=== PATIENT | male | born 1945 | race Caucasian/White ===

== ENCOUNTER → 2017-08-02 | Emergency (ER) | payer OTHER ==
[~2017-08-02] VITALS: Ht 160 cm; Wt 70.3 kg
[~2017-08-02] MED LIST: AMANTADINE100 MG; AMOX1TAB12 PO; ASA81 MG; CARBIDOPA; COMTAN200 MG; DICLOFENAC SODI50 MG PO; LEVODOPA; MIRAPEX1.5 MG; ZESTORETIC 10/11 TAB
== END | disposition home or self-care (01) ==
LOC: ER 08:20
DX: S22.32XA Fracture of one rib, left side, initial encounter for closed fracture (principal); W01.198A Fall on same level from slipping, tripping and stumbling with subsequent striking against other object, initial encounter; Y93.01 Activity, walking, marching and hiking; Y92.018 Other place in single-family (private) house as the place of occurrence of the external cause; Y99.8 Other external cause status

== ENCOUNTER 2018-11-17 05:20 | Emergency (ER) | payer OTHER ==
[~2018-11-17] VITALS: Ht 157.5 cm; Wt 72.6 kg
== END 2018-11-17 09:50 | disposition home or self-care (01) ==
LOC: ER 05:20
DX: R41.82 Altered mental status, unspecified (principal)

== ENCOUNTER 2021-08-12 17:52 | Emergency (ER) | payer OTHER ==
[~2021-08-12] VITALS: Ht 175.3 cm; Wt 77.1 kg
[2021-08-12] MEDS ORDERED: NUPLAZID34 MG PO (18:14)
== END 2021-08-13 | disposition home or self-care (01) ==
LOC: ER 17:52
DX: U07.1 COVID-19 (principal); J98.9 Respiratory disorder, unspecified

== ENCOUNTER 2023-04-05 10:46 | Emergency (ER) | payer OTHER ==
[~2023-04-05] VITALS: Ht 162.6 cm; Wt 68.0 kg
[~2023-04-05 10:46] MED LIST changes: +NUPLAZID34 MG PO
[2023-04-05] MEDS ORDERED: RYTARY ER 36.21 EACH PO (11:08)
[2023-04-05] MEDS ORDERED: RYTARY ER 23.71 EACH PO (11:08)
[2023-04-05] MEDS ORDERED: NUPLAZID10 MG PO (11:08)
[2023-04-05 11:57] LABS: HEMATOCRIT 35.2 % (39.0-48.0); HEMOGLOBIN 11.2 g/dL (13-16.00); MEAN CELL VOLUME 69.1 fL (80.0-100.00); MEAN CORPUSCULAR HGB CONC 31.8 g/dl (32.0-36.0); PLATELET COUNT 228 K/uL (150-450); RED CELL DISTRIBUTION WIDTH 15.6 % (11.5-14.5)
[2023-04-05] MEDS ORDERED: TUSNEL LIQUID178 ML PO (12:43)
== END 2023-04-05 13:15 | disposition home or self-care (01) ==
LOC: ER 10:46
PROVIDERS: General Practice
DX: R05.8 Other specified cough (principal); I10 Essential (primary) hypertension; G20.A1 Parkinson's disease without dyskinesia, without mention of fluctuations

== ENCOUNTER 2024-02-29 23:38 | Emergency (ER) | payer OTHER ==
[~2024-02-29] VITALS: Ht 167.6 cm; Wt 68.0 kg
[~2024-02-29 23:38] MED LIST changes: +NUPLAZID10 MG PO; +RYTARY ER 23.71 EACH PO; +RYTARY ER 36.21 EACH PO; +TUSNEL LIQUID178 ML PO
[2024-03-01] MEDS ORDERED: PRAMIPEXOLE E2.25 MG (00:03)
[2024-03-01] MEDS ORDERED: SINGULAIR10 MG PO (00:04)
[2024-03-01] MEDS ORDERED: RYTARY ER 48.71 EACH PO (00:04)
[2024-03-01] MEDS ORDERED: [UNRECOGNIZED DRUG - OTHER] (00:05)
[2024-03-01] MEDS ORDERED: TRIPLIX (00:05)
[2024-03-01] MEDS ORDERED: VISTARIL25 MG PO (00:06)
[2024-03-01] MEDS ORDERED: RIVASTIGMINE1.5 MG PO (00:06)
[2024-03-01] MEDS ORDERED: 0.9 % SODIUM CHLORIDE 1,000 ML IV ONE (01:15)
[2024-03-01 02:17] LABS: HEMATOCRIT 29.7 % (39.0-48.0); MEAN CORPUSCULAR HEMOGLOBIN 22.2 pg (27.00-32.0); MEAN CORPUSCULAR HGB CONC 33.3 g/dl (32.0-36.0); PLATELET COUNT 230 K/uL (150-450); RED BLOOD COUNT 4.45 M/uL (4.00-6.00)
[2024-03-01 02:19] LABS: HEMOGLOBIN 9.9 g/dL (13-16.00); MEAN CELL VOLUME 66.7 fL (80.0-100.00)
[2024-03-01 02:37] LABS: ALBUMIN 3.1 gm/dL (3.4-5.0); BILIRUBIN TOTAL 0.91 mg/dL (0.3-1.2); CREATININE SERUM 0.93 mg/dL (0.70-1.30); GFR 78.58; GLOBULINA 3.2 G/DL (2.4-3.5); POTASSIUM 4.44 mEq/L (3.5-5.1); TOTAL PROTEIN 6.3 gm/dL (6.4-8.2)
[2024-03-01 03:04] LABS: URINE APPEARANCE Clear; URINE BILIRRUBIN Small (NEGATIVE); URINE BLOOD Negative; URINE COLOR Dark Yellow; URINE GLUCOSE Negative (NEGATIVE); URINE KETONE Trace (NEGATIVE); URINE LEUKOCYTE Trace; URINE NITRATE Negative; URINE PROTEIN Trace (NEGATIVE)
[2024-03-01 03:09] LABS: URINE BACTERIA 6.2 uL (0.0-1933); URINE EPITHELIAL CELLS 3.4 uL (0.0-38.8); URINE RBC 4.4 uL (0.0-20.8); URINE WBC 5.8 uL (0.0-23.2)
[2024-03-01] MEDS ORDERED: DIPHENHYDRAMINE HCL 50 MG/ML VIAL 1ML IV STA (03:24)
[2024-03-01] MEDS ORDERED: CIPRO250 MG PO (06:55)
[2024-03-01] MEDS ORDERED: URETRON D-S TAB1 TAB PO (06:55)
[2024-03-01] MEDS ORDERED: INTEGRA CAPSUL1 EACH PO (06:58)
[2024-03-01 07:21] VITALS: BP 166/80; O2SAT 97
== END 2024-03-01 07:22 ==
LOC: ER 23:38
PROVIDERS: General Practice
DX: S39.82XA Other specified injuries of lower back, initial encounter (principal); W19.XXXA Unspecified fall, initial encounter; Y93.89 Activity, other specified; Y92.098 Other place in other non-institutional residence as the place of occurrence of the external cause; Y99.8 Other external cause status; R30.0 Dysuria; I10 Essential (primary) hypertension
CPT/HCPCS: 36415; 51702; 72100; 72170; 96365; 96366; 99283; J1200; J7030

== ENCOUNTER 2024-03-17 10:41 | Inpatient (IN) | payer OTHER ==
[~2024-03-17] VITALS: Ht 162.6 cm; Wt 68.0 kg
[~2024-03-17 10:41] MED LIST changes: +CIPRO250 MG PO; +INTEGRA CAPSUL1 EACH PO; +PRAMIPEXOLE E2.25 MG; +RIVASTIGMINE1.5 MG PO; +RYTARY ER 48.71 EACH PO; +SINGULAIR10 MG PO; +TRIPLIX; +URETRON D-S TAB1 TAB PO; +VISTARIL25 MG PO; +[UNRECOGNIZED DRUG - OTHER]
--- NOTE | 2024-03-17 11:49 | NUR ---
PACIENTE ALERTA Y ORIENTADO X3 QUIEN DESDE MIERCOLES PRESENTO LACERACION EN PIERNA IZQUIERDA EN DONDE ORNELAS PRESENTADO INFLAMACION Y ENROJECIMIENTO. SE OBSERVA AMBAS EXTREMIDADES INFERIORES INFLAMADAS.
[2024-03-17] MEDS ORDERED: CIPROFLOXACIN IN 5 % DEXTROSE 400 MG/200 ML PIGGYBAG IV STA (12:27)
--- NOTE | 2024-03-17 13:48 | NUR ---
PACIENTE ALERTA Y ORIENTADO X3. RN DAVENPORT EDUCA A PACIENTE Y FAMILIAR SOBRE PROCESO DE KELTON DE MUESTRAS, CANALIZACION Y ADMINISTRACION DE MEDICAMENTOS, REFIEREN ENTENDER. SE EJECUTAN ORDENES BAJO MEDIDAS ASEPTICAS.
[2024-03-17 14:06] LABS: HEMOGLOBIN 9.4 g/dL (13-16.00); MEAN CORPUSCULAR HEMOGLOBIN 20.9 pg (27.00-32.0); MEAN CORPUSCULAR HGB CONC 31.5 g/dl (32.0-36.0); PLATELET COUNT 444 K/uL (150-450); RED BLOOD COUNT 4.51 M/uL (4.00-6.00)
[2024-03-17 14:12] LABS: MEAN CELL VOLUME 66.6 fL (80.0-100.00)
[2024-03-17 16:52] LABS: URINE APPEARANCE Turbid; URINE BILIRRUBIN Negative (NEGATIVE); URINE BLOOD Small; URINE COLOR Yellow; URINE GLUCOSE Negative (NEGATIVE); URINE KETONE Negative (NEGATIVE); URINE LEUKOCYTE Large; URINE NITRATE Negative; URINE PROTEIN Trace (NEGATIVE); URINE UROBILINOGEN 0.2 E.U./dl
[2024-03-17 16:56] LABS: URINE BACTERIA 114.6 uL (0.0-1933); URINE CAST 1.52 uL (0.0-1.40); URINE EPITHELIAL CELLS 4.6 uL (0.0-38.8); URINE RBC 5.4 uL (0.0-20.8); URINE WBC 3547.1 uL (0.0-23.2)
[2024-03-17 17:00] LABS: CALCIUM 8.9 mg/dL (8.5-10.1); CREATININE SERUM 1.65 mg/dL (0.70-1.30); GFR 40.55; POTASSIUM 3.75 mEq/L (3.5-5.1)
[2024-03-17] MEDS ORDERED: CEFTRIAXONE SODIUM 2,000 MG VIAL IV ONE (18:15)
[2024-03-17] MEDS ORDERED: CEFTRIAXONE SODIUM 2,000 MG in 0.9 % SODIUM CHLORIDE 100 ML IV SCH (19:56)
[2024-03-17] MEDS ORDERED: 0.9 % SODIUM CHLORIDE 1,000 ML IV SCH (20:15)
[2024-03-17] MEDS ORDERED: QUETIAPINE FUMARATE 25 MG TABLET PO SCH (20:26)
[2024-03-17] MEDS ORDERED: CARBIDOPA/LEVODOPA 25/100 UDTAB PO SCH (20:26)
[2024-03-17] MEDS ORDERED: FUROsemide 20 MG/2 ML VIAL IV ONE (20:30)
[2024-03-17] MEDS ORDERED: ENALAPRILAT DIHYDRATE 1.25 MG/ML VIAL IV PRN (20:30)
[2024-03-17 23:53] LABS: INR 1.23; PARTIAL THROMBOPLASTIN TIME 36.3 SECONDS (22.0-34.0); PROTHROMBIN TIME 13.2 SECONDS (9.0-11.5)
[2024-03-17 23:58] LABS: ALBUMIN 2.2 gm/dL (3.4-5.0); CALCIUM 8.5 mg/dL (8.5-10.1); CREATININE SERUM 1.6 mg/dL (0.70-1.30); GFR 42.01; PHOSPHOROUS 3.3 mg/dL (2.5-4.9); POTASSIUM 4.27 mEq/L (3.5-5.1)
[2024-03-18 05:00] VITALS: BP 151/66; O2SAT 96
[2024-03-18 07:37] LABS: ALBUMIN 1.9 gm/dL (3.4-5.0); BILIRUBIN TOTAL 0.62 mg/dL (0.3-1.2); CALCIUM 8.5 mg/dL (8.5-10.1); CREATININE SERUM 1.45 mg/dL (0.70-1.30); GFR 47.07; GLOBULINA 3.6 G/DL (2.4-3.5); POTASSIUM 4.14 mEq/L (3.5-5.1); TOTAL PROTEIN 5.5 gm/dL (6.4-8.2)
[2024-03-18 08:37] VITALS: BP 177/90; O2SAT 97
[2024-03-18 19:08] VITALS: BP 160/80
[2024-03-19 02:37] VITALS: BP 124/92; O2SAT 99
[2024-03-19 08:54] VITALS: BP 177/83; O2SAT 99
[2024-03-19 17:25] VITALS: BP 165/74
[2024-03-20 02:25] VITALS: BP 186/80; O2SAT 98
[2024-03-20 08:13] VITALS: BP 173/89
[2024-03-20 16:28] VITALS: BP 177/84; O2SAT 97
[2024-03-20] MEDS ORDERED: hydrALAZINE HCL 25 MG TABLET PO SCH (17:00)
[2024-03-20 20:00] VITALS: BP 167/76; O2SAT 97
[2024-03-21 02:17] VITALS: BP 156/64; O2SAT 96
[2024-03-21 06:44] LABS: ALBUMIN 1.8 gm/dL (3.4-5.0); ALKALINE PHOSPHATASE 89 U/L (50-136); ANION GAP 10 (10.0-20.0); AST/SGOT 44 U/L (15-37); BILIRUBIN TOTAL 0.45 mg/dL (0.3-1.2); BLOOD UREA NITROGEN 33 mg/dL (7-18); BUN CREA RATIO 31 (7.0-25.0); CALCIUM 8.5 mg/dL (8.5-10.1); CARBON DIOXIDE 27 mEq/L (21-32); CHLORIDE 114 mmol/L (98-107); CREATININE SERUM 1.07 mg/dL (0.70-1.30); GFR 66.84; GLOBULINA 3.5 G/DL (2.4-3.5); GLUCOSE FASTING 88 mg/dL (65-100); OSMOLALITY SERUM 299 MOSM/KG (275-295); POTASSIUM 3.88 mEq/L (3.5-5.1); SODIUM 147 mmol/L (136-145); TOTAL PROTEIN 5.3 gm/dL (6.4-8.2)
[2024-03-21 06:45] LABS: ALT/SGPT < 6 U/L (12-78)
[2024-03-21 09:21] VITALS: BP 176/82; O2SAT 100
== END 2024-03-21 12:20 | disposition home or self-care (01) | DRG 603 ==
LOC: ER 10:43 → MEDI 21:24
PROVIDERS: General Practice; Student in an Organized Health Care Education/Training Program; ADMIT Internal Medicine; ATTEND Internal Medicine
PROC: B54DZZZ Ultrasonography of Bilateral Lower Extremity Veins (ICD-10-PCS; 2024-03-17)
PROC: B44HZZZ Ultrasonography of Bilateral Lower Extremity Arteries (ICD-10-PCS; principal; 2024-03-18)
DX: L03.116 Cellulitis of left lower limb (principal); N17.9 Acute kidney failure, unspecified; N39.0 Urinary tract infection, site not specified; G20.A1 Parkinson's disease without dyskinesia, without mention of fluctuations; I10 Essential (primary) hypertension; I70.203 Unspecified atherosclerosis of native arteries of extremities, bilateral legs; I73.9 Peripheral vascular disease, unspecified

== ENCOUNTER 2024-03-26 11:26 | Inpatient (IN) | payer OTHER ==
[~2024-03-26] VITALS: Ht 162.6 cm; Wt 68.0 kg
--- NOTE | 2024-03-26 11:40 | NUR ---
SE RECIBE MASCULINO ALERTA Y ORIENTADO EN PERSONA Y LUGAR EN AMBULANCIA EN COMPANIA DE FAMILIAR. FAMILIAR REFIERE QUE EN EL HOGAR PACIENTE PRESENTO DIFICULTAD RESPIRATORIA Y NO ESTABA RESPONDIENDO. AL MOMENTO DE TRIAGE PACIENTE SATURANDO 98% ROOM AIR. SE MIDEN S/V, SE REALIZA EKG Y SE UBICA A PACIENTE CONECTADO A MONITOR CARDIACO Y OXIMETRIA DE PULSO.
--- NOTE | 2024-03-26 11:51 | NUR ---
SE ORIENTA A FAMILIAR SOBRE ORDENES MEDICAS Y VERBALIZA ENTENDER Y ACEPTAR. SE REALIZA VENOPUNCION PARA OBTENER ACCESO VENOSO Y COLECTAR MUESTRAS DE CURLY POR AUBRIE COLE. ADMINISTRA MEDICAMENTOS SARAH ORDEN MEDICA. SE ETIQUETAN LAS MUESRTRAS Y SE ENVIAN A LABORATORIO.
--- NOTE | 2024-03-26 11:56 | NUR ---
SE CONECTA A PACIENTE A MONITOR CARDIACO EN AREA DE SECCION K
[2024-03-26 12:39] LABS: ALBUMIN 2.2 gm/dL (3.4-5.0); BILIRUBIN TOTAL 0.77 mg/dL (0.3-1.2); CALCIUM 8.5 mg/dL (8.5-10.1); CREATININE SERUM 1.94 mg/dL (0.70-1.30); GFR 33.64; GLOBULINA 4.2 G/DL (2.4-3.5); POTASSIUM 4.1 mEq/L (3.5-5.1); TOTAL PROTEIN 6.4 gm/dL (6.4-8.2)
[2024-03-26 12:50] LABS: HEMATOCRIT 25.6 % (39.0-48.0); HEMOGLOBIN 8.5 g/dL (13-16.00); MEAN CORPUSCULAR HEMOGLOBIN 21.6 pg (27.00-32.0); MEAN CORPUSCULAR HGB CONC 33.2 g/dl (32.0-36.0); PLATELET COUNT 279 K/uL (150-450); RED BLOOD COUNT 3.93 M/uL (4.00-6.00); RED CELL DISTRIBUTION WIDTH 17.2 % (11.5-14.5)
[2024-03-26] MEDS ORDERED: NITROGLYCERIN IN 5 % DEXTROSE 50 MG/250 ML KIT IV ONE (13:00)
[2024-03-26] MEDS ORDERED: FUROsemide 40 MG/4 ML VIAL IV ONE (13:00)
[2024-03-26] MEDS ORDERED: CEFTRIAXONE SODIUM 1,000 MG VIAL IV ONE (13:30)
[2024-03-26 13:54] LABS: ABG PH 7.467 (7.35-7.45); ABG PO2 64.3 mmHg (80-100); ABG pCO2 34.5 mmHg (35-45); BASE EXCESS 1.2 mmol/l; BICARBONATE 24.4 mmol/l (23-25); SaO2 93.7 %; Tco2 25.4 mmol/l; allen test SATISFACTORY; o2 21 %; puncture site RADIAL LEFT
[2024-03-26 14:31] LABS: URINE BACTERIA 75.8 uL (0.0-1933); URINE CAST 6.62 uL (0.0-1.40); URINE RBC 117.2 uL (0.0-20.8); URINE WBC 97.5 uL (0.0-23.2)
[2024-03-26 14:38] LABS: URINE APPEARANCE Cloudy; URINE BILIRRUBIN Negative (NEGATIVE); URINE BLOOD Large; URINE COLOR Dark Yellow; URINE GLUCOSE Negative (NEGATIVE); URINE KETONE Trace (NEGATIVE); URINE LEUKOCYTE Small; URINE NITRATE Negative
[2024-03-26 15:47] LABS: URINE PROTEIN 100 (NEGATIVE)
[2024-03-26 15:48] LABS: URINE MUCUS MODERATE
[2024-03-26] MEDS ORDERED: FUROsemide 20 MG/2 ML VIAL IV SCH (18:57)
[2024-03-26] MEDS ORDERED: NITROGLYCERIN IN 5 % DEXTROSE 250 ML IV SCH (19:00)
[2024-03-26] MEDS ORDERED: 0.9 % SODIUM CHLORIDE 1,000 ML IV SCH (19:00)
[2024-03-26] MEDS ORDERED: CARBIDOPA/LEVODOPA 25/100 UDTAB PO SCH (19:27)
[2024-03-26 20:18] VITALS: BP 125/61
[2024-03-26 20:24] VITALS: BP 125/61; O2SAT 96
[2024-03-26] MEDS ORDERED: ENOXAPARIN SODIUM 30 MG/0.3 ML SYRINGE SUBCUTANEO SCH (21:00)
[2024-03-26] MEDS ORDERED: CEFTRIAXONE SODIUM 1,000 MG in 0.9 % SODIUM CHLORIDE 100 ML IV SCH (21:00)
[2024-03-26 21:34] LABS: ALBUMIN 1.9 gm/dL (3.4-5.0); CALCIUM 8.9 mg/dL (8.5-10.1); CREATININE SERUM 2.04 mg/dL (0.70-1.30); GFR 31.74; PHOSPHOROUS 4.1 mg/dL (2.5-4.9)
[2024-03-26 21:35] LABS: CHOL HDL RATIO 1.9 (0-5.0)
[2024-03-26 21:38] LABS: INR 1.32; PROTHROMBIN TIME 14.1 SECONDS (9.0-11.5)
[2024-03-26 21:39] LABS: PARTIAL THROMBOPLASTIN TIME 39.1 SECONDS (22.0-34.0)
[2024-03-26 22:38] VITALS: BP 151/85; O2SAT 100
[2024-03-26 23:41] VITALS: BP 121/59; O2SAT 100
[2024-03-27] MEDS ORDERED: NITROGLYCERIN IN 5 % DEXTROSE 250 ML IV SCH (07:15)
[2024-03-27 09:28] VITALS: BP 147/80; O2SAT 98
[2024-03-27] MEDS ORDERED: ENOXAPARIN SODIUM 80 MG/0.8 ML SYRINGE SUBCUTANEO SCH (17:00)
[2024-03-27] MEDS ORDERED: ASPIRIN 81 MG TAB.CHEW PO SCH (18:07)
[2024-03-27] MEDS ORDERED: CLOPIDOGREL BISULFATE 75 MG TABLET PO SCH (18:07)
[2024-03-27] MEDS ORDERED: METOPROLOL SUCCINATE 25 MG TAB.SR.24H PO SCH (18:08)
[2024-03-27] MEDS ORDERED: ATORVASTATIN CALCIUM 40 MG TABLET PO SCH (18:08)
[2024-03-27 18:33] VITALS: BP 169/74
[2024-03-27] MEDS ORDERED: QUETIAPINE FUMARATE 25 MG TABLET PO SCH (21:00)
[2024-03-28 02:13] VITALS: BP 146/66; O2SAT 96
[2024-03-28 07:55] VITALS: BP 160/80; O2SAT 98
[2024-03-28] MEDS ORDERED: CARBIDOPA/LEVODOPA 25/100 UDTAB PO SCH (09:00)
[2024-03-28 18:01] VITALS: BP 178/85
[2024-03-29 02:56] VITALS: BP 180/85; O2SAT 96
[2024-03-29 08:46] VITALS: BP 180/85; O2SAT 94
[2024-03-29 12:06] LABS: MEAN CORPUSCULAR HGB CONC 33.2 g/dl (32.0-36.0); PLATELET COUNT 212 K/uL (150-450); RED BLOOD COUNT 3.26 M/uL (4.00-6.00); RED CELL DISTRIBUTION WIDTH 17.1 % (11.5-14.5)
[2024-03-29 12:24] LABS: CALCIUM 8.2 mg/dL (8.5-10.1); CREATININE SERUM 1.83 mg/dL (0.70-1.30); GFR 35.98; POTASSIUM 3.66 mEq/L (3.5-5.1)
[2024-03-29 13:03] LABS: HEMATOCRIT 21.1 % (39.0-48.0); MEAN CELL VOLUME 64.9 fL (80.0-100.00); MEAN CORPUSCULAR HEMOGLOBIN 21.4 pg (27.00-32.0)
[2024-03-29 20:46] VITALS: BP 172/80
[2024-03-29] MEDS ORDERED: NIFEDIPINE 30 MG TAB.SA.OSM PO SCH (21:04)
[2024-03-30 03:18] VITALS: BP 149/73; O2SAT 95
[2024-03-30] MEDS ORDERED: hydrALAZINE HCL 25 MG TABLET PO SCH (09:00)
[2024-03-30 11:08] VITALS: BP 182/70; O2SAT 95
[2024-03-30 18:23] VITALS: BP 146/70; O2SAT 95
[2024-03-31 03:01] VITALS: BP 152/68; O2SAT 93
[2024-03-31 06:26] LABS: HEMATOCRIT 30.4 % (39.0-48.0); PLATELET COUNT 282 K/uL (150-450); RED BLOOD COUNT 4.45 M/uL (4.00-6.00); RED CELL DISTRIBUTION WIDTH 19.9 % (11.5-14.5)
[2024-03-31 06:37] LABS: MEAN CELL VOLUME 68.4 fL (80.0-100.00); MEAN CORPUSCULAR HEMOGLOBIN 22.4 pg (27.00-32.0)
[2024-03-31 06:41] LABS: ALBUMIN 1.8 gm/dL (3.4-5.0); CALCIUM 8.5 mg/dL (8.5-10.1); CREATININE SERUM 1.41 mg/dL (0.70-1.30); GFR 48.61; PHOSPHOROUS 2.4 mg/dL (2.5-4.9); POTASSIUM 3.51 mEq/L (3.5-5.1)
[2024-03-31 08:34] VITALS: BP 167/66; O2SAT 99
[2024-03-31 17:31] LABS: HEMATOCRIT 37.3 % (39.0-48.0); HEMOGLOBIN 12.4 g/dL (13-16.00); MEAN CORPUSCULAR HGB CONC 33.1 g/dl (32.0-36.0); PLATELET COUNT 286 K/uL (150-450); RED BLOOD COUNT 5.38 M/uL (4.00-6.00); RED CELL DISTRIBUTION WIDTH 21.7 % (11.5-14.5)
[2024-03-31 17:33] LABS: MEAN CELL VOLUME 69.4 fL (80.0-100.00)
[2024-03-31 18:08] VITALS: BP 180/80
[2024-04-01 02:10] VITALS: BP 158/81; O2SAT 93
[2024-04-01 10:39] VITALS: BP 172/74; O2SAT 96
[2024-04-01] MEDS ORDERED: hydrALAZINE HCL 50 MG TABLET PO SCH (17:00)
[2024-04-01 17:21] VITALS: BP 155/72; O2SAT 98
[2024-04-01] MEDS ORDERED: POLYETHYLENE GLYCOL 3350 17 GM BLIST.PACK PO SCH (18:34)
[2024-04-02 03:50] VITALS: BP 160/71; O2SAT 95
[2024-04-02 11:03] VITALS: BP 138/65; O2SAT 94
[2024-04-02 17:56] VITALS: BP 144/76; O2SAT 98
[2024-04-03 02:20] VITALS: BP 151/66; O2SAT 95
[2024-04-03 09:08] VITALS: BP 179/80; O2SAT 98
[2024-04-03 17:59] VITALS: BP 160/77; O2SAT 99
[2024-04-04] MEDS ORDERED: hydrALAZINE HCL 50 MG TABLET PO SCH (01:00)
[2024-04-04 01:24] VITALS: BP 152/78; O2SAT 94
[2024-04-04 08:21] VITALS: BP 147/70; O2SAT 99
[2024-04-04 09:33] LABS: HEMATOCRIT 34.6 % (39.0-48.0); HEMOGLOBIN 11.2 g/dL (13-16.00); MEAN CELL VOLUME 69.9 fL (80.0-100.00); MEAN CORPUSCULAR HEMOGLOBIN 22.6 pg (27.00-32.0); MEAN CORPUSCULAR HGB CONC 32.3 g/dl (32.0-36.0); PLATELET COUNT 322 K/uL (150-450); RED BLOOD COUNT 4.96 M/uL (4.00-6.00); RED CELL DISTRIBUTION WIDTH 22.8 % (11.5-14.5)
[2024-04-04 09:55] LABS: CALCIUM 8.4 mg/dL (8.5-10.1); CREATININE SERUM 1.54 mg/dL (0.70-1.30); GFR 43.91; PHOSPHOROUS 3.5 mg/dL (2.5-4.9); POTASSIUM 3.88 mEq/L (3.5-5.1)
[2024-04-04] MEDS ORDERED: hydrALAZINE HCL 50 MG,hydrALAZINE HCL 25 MG PO SCH (13:00)
== END 2024-04-04 14:08 | disposition home or self-care (01) | DRG 281 ==
LOC: ER 11:26 → MEDJ 19:07
PROVIDERS: General Practice; Specialist/Technologist, Other Nephrology; ADMIT Internal Medicine; ATTEND Internal Medicine
PROC: B24BYZZ Ultrasonography of Heart with Aorta using Other Contrast (ICD-10-PCS; principal; 2024-03-26)
PROC: 4A12X4Z Monitoring of Cardiac Electrical Activity, External Approach (ICD-10-PCS; 2024-03-27)
PROC: BW40ZZZ Ultrasonography of Abdomen (ICD-10-PCS; 2024-03-28)
PROC: 30233N1 Transfusion of Nonautologous Red Blood Cells into Peripheral Vein, Percutaneous Approach (ICD-10-PCS; 2024-03-30)
DX: I50.9 Heart failure, unspecified (principal); J81.1 Chronic pulmonary edema; I21.A1 Myocardial infarction type 2; J90 Pleural effusion, not elsewhere classified; N39.0 Urinary tract infection, site not specified; N18.9 Chronic kidney disease, unspecified; G20.A1 Parkinson's disease without dyskinesia, without mention of fluctuations; I50.30 Unspecified diastolic (congestive) heart failure; R06.02 Shortness of breath

== ENCOUNTER 2024-05-01 15:43 | Inpatient (IN) | payer OTHER ==
[~2024-05-01] VITALS: Ht 170.2 cm; Wt 77.1 kg
[2024-05-01] MEDS ORDERED: MONTELUKAST SODI4 M1 (16:40)
[2024-05-01] MEDS ORDERED: PRAMIPEXOLE E2.25 MG PO (16:41)
[2024-05-01] MEDS ORDERED: OLANZAPINE2.5 MG PO (16:41)
[2024-05-01] MEDS ORDERED: QUETIAPINE FUM400 M1 PO (16:41)
[2024-05-01] MEDS ORDERED: FENOFIBRATE134 MG PO (16:41)
[2024-05-01] MEDS ORDERED: LODOSYN25 MG PO (16:41)
[2024-05-01] MEDS ORDERED: HYDRALAZINE HCL25 MG PO (16:42)
[2024-05-01] MEDS ORDERED: ATORVALIQ20 MG/5 ML (16:42)
[2024-05-01] MEDS ORDERED: TOPROL XL25 M1 PO (16:42)
[2024-05-01] MEDS ORDERED: NIFEDIPINE20 MG PO (16:42)
[2024-05-01] MEDS ORDERED: LASIX20 MG PO (16:43)
--- NOTE | 2024-05-01 16:43 | NUR ---
SE RECIBE PACIENTE EN AMBULANCIA DE [place] ; EL MISMO ALERTA CON RESPUESTA A ESTIMULOS DE DOLOR. PARAMEDICO INDICA QUE SE ACTIVO AMBULANCIA DEBIDO A INAPETENCIA LUIS ENRIQUE QUE AL LLEGAR AL LUGAR PRESENTABA HR EN 45. INDICA QUE ADMINISTRARON 1MG DE ATROPINA. SE REALIZA EKG. SE CONECTA PACIENTE A MONITOR CARDIACO.
[2024-05-01 18:13] LABS: HEMATOCRIT 30.8 % (39.0-48.0); HEMOGLOBIN 10.2 g/dL (13-16.00); MEAN CORPUSCULAR HEMOGLOBIN 22.4 pg (27.00-32.0); PLATELET COUNT 141 K/uL (150-450); RED BLOOD COUNT 4.54 M/uL (4.00-6.00); RED CELL DISTRIBUTION WIDTH 22.4 % (11.5-14.5)
[2024-05-01 18:14] LABS: ABG PH 7.436 (7.35-7.45); ABG PO2 151.5 mmHg (80-100); ABG pCO2 45.7 mmHg (35-45); BICARBONATE 30.1 mmol/l (23-25); SaO2 99.4 %; Tco2 31.5 mmol/l
[2024-05-01 18:17] LABS: MEAN CELL VOLUME 67.9 fL (80.0-100.00)
[2024-05-01 18:31] LABS: ALBUMIN 2.4 gm/dL (3.4-5.0); BILIRUBIN TOTAL 0.55 mg/dL (0.3-1.2); CALCIUM 8.5 mg/dL (8.5-10.1); CREATININE SERUM 1.07 mg/dL (0.70-1.30); GFR 66.67; GLOBULINA 3.7 G/DL (2.4-3.5); POTASSIUM 3.12 mEq/L (3.5-5.1); TOTAL PROTEIN 6.1 gm/dL (6.4-8.2)
[2024-05-01 18:32] LABS: allen test SATISFACTORY; puncture site RADIAL RIGHT
--- NOTE | 2024-05-01 18:32 | NUR ---
SE EDUCA FAMILIAR SOBRE EL TX MEDICO Y ESTA REFIERE ENTENDER. SE CANALIZA EN MANO IZQUIERDA # 20 SE ADELA EN S/L. SE MEGAN MUESTRAS DE LABORATORIOS Y SE ENVIAN. SE COLOCA LUNA # 16 SE OBSERVA 400 ML DE EGRESO NO HEMATURIA SE KELTON U/A. SE NOTIFICAN ABGS A MR. ALEXANDRE PENDIENTE A PLACA PORTABLE
[2024-05-01 18:33] LABS: o2 28 %
[2024-05-01 18:55] LABS: PH,URINE 5.5 (5.0-8.0); URINE APPEARANCE Clear; URINE BILIRRUBIN Negative (NEGATIVE); URINE BLOOD Small; URINE COLOR Yellow; URINE GLUCOSE Negative (NEGATIVE); URINE KETONE Negative (NEGATIVE); URINE LEUKOCYTE Negative; URINE NITRATE Negative; URINE PROTEIN 30 (NEGATIVE)
[2024-05-01 18:56] LABS: URINE BACTERIA 26.9 uL (0.0-1933); URINE EPITHELIAL CELLS 7.2 uL (0.0-38.8); URINE RBC 150.6 uL (0.0-20.8); URINE WBC 14.7 uL (0.0-23.2)
[2024-05-01 19:13] LABS: URINE CAST 0.73 uL (0.0-1.40)
[2024-05-01] MEDS ORDERED: 0.9 % SODIUM CHLORIDE 1,000 ML IV SCH (23:15)
[2024-05-01 23:28] VITALS: BP 132/68; O2SAT 98
[2024-05-02 03:10] VITALS: BP 124/66; O2SAT 95
[2024-05-02 08:39] VITALS: BP 164/82; O2SAT 96
[2024-05-02] MEDS ORDERED: FUROsemide 20 MG TABLET PO SCH (09:00)
[2024-05-02] MEDS ORDERED: hydrALAZINE HCL 50 MG TABLET PO SCH (09:00)
[2024-05-02] MEDS ORDERED: METOPROLOL SUCCINATE 25 MG TAB.SR.24H PO SCH (09:00)
[2024-05-02] MEDS ORDERED: NIFEDIPINE 30 MG TAB.SA.OSM PO SCH (09:00)
[2024-05-02] MEDS ORDERED: FAMOTIDINE/PF 20 MG/2 ML VIAL IV SCH (09:00)
[2024-05-02] MEDS ORDERED: ATORVASTATIN CALCIUM 40 MG TABLET PO SCH (17:00)
[2024-05-02 19:28] VITALS: BP 128/74; O2SAT 97
[2024-05-02] MEDS ORDERED: GABAPENTIN 300 MG CAPSULE PO SCH (21:00)
[2024-05-03 00:20] VITALS: BP 176/70; O2SAT 98
[2024-05-03] MEDS ORDERED: PIPERACILLIN/TAZOBACTAM SODIUM 3.375 GM in DEXTROSE 5 % IN WATER 100 ML IV SCH (06:00)
[2024-05-03] MEDS ORDERED: PATIENTS OWN MEDICATION (MEDICAMENTO EN PISO) PO SCH ×3 (09:00)
[2024-05-03] MEDS ORDERED: CARBIDOPA/LEVODOPA 50/200 CR TABLET.SA PO SCH (09:00)
[2024-05-03 16:00] VITALS: BP 131/74; O2SAT 95
[2024-05-04 00:32] VITALS: BP 156/70; O2SAT 100
[2024-05-04] MEDS ORDERED: HYDRALAZINE HCL25 MG PO (07:29)
[2024-05-04] MEDS ORDERED: ATORVALIQ20 MG/5 ML PO (07:29)
[2024-05-04] MEDS ORDERED: HYDRALAZINE HCL50 MG PO (07:30)
[2024-05-04] MEDS ORDERED: Procardia Xl 30MG TA PO (07:30)
[2024-05-04] MEDS ORDERED: TOPROL XL25 M1 PO (07:30)
[2024-05-04] MEDS ORDERED: GABAPENTIN300 MG PO (07:31)
[2024-05-04] MEDS ORDERED: CARBIDOPA-LEVO1 EA12 PO (07:31)
[2024-05-04] MEDS ORDERED: AMOX250 PO (07:32)
[2024-05-04 08:00] VITALS: BP 185/78; O2SAT 94
[2024-05-04 16:30] VITALS: BP 142/80; O2SAT 99
== END 2024-05-04 18:44 | disposition home or self-care (01) | DRG 57 ==
LOC: ER 15:43 → SEC-K 22:36 → SURG 22:36
PROVIDERS: General Practice; ADMIT Internal Medicine; ATTEND Internal Medicine
PROC: B020ZZZ Computerized Tomography (CT Scan) of Brain (ICD-10-PCS; 2024-05-01)
PROC: B246ZZZ Ultrasonography of Right and Left Heart (ICD-10-PCS; principal; 2024-05-02)
PROC: 4A12X4Z Monitoring of Cardiac Electrical Activity, External Approach (ICD-10-PCS; 2024-05-02)
PROC: BB24ZZZ Computerized Tomography (CT Scan) of Bilateral Lungs (ICD-10-PCS; 2024-05-03)
DX: G20.A1 Parkinson's disease without dyskinesia, without mention of fluctuations (principal); F02.811 Dementia in other diseases classified elsewhere, unspecified severity, with agitation; R41.82 Altered mental status, unspecified; R68.89 Other general symptoms and signs; I10 Essential (primary) hypertension

== ENCOUNTER 2024-05-08 17:12 | Inpatient (IN) | payer OTHER ==
[~2024-05-08] VITALS: Ht 167.6 cm; Wt 68.0 kg
[~2024-05-08 17:12] MED LIST changes: +AMOX250 PO; +ATORVALIQ20 MG/5 ML; +ATORVALIQ20 MG/5 ML PO; +CARBIDOPA-LEVO1 EA12 PO; +FENOFIBRATE134 MG PO; +GABAPENTIN300 MG PO; +HYDRALAZINE HCL25 MG PO; +HYDRALAZINE HCL50 MG PO; +LASIX20 MG PO; +LODOSYN25 MG PO; +MONTELUKAST SODI4 M1; +NIFEDIPINE20 MG PO; +OLANZAPINE2.5 MG PO; +PRAMIPEXOLE E2.25 MG PO; +Procardia Xl 30MG TA PO; +QUETIAPINE FUM400 M1 PO; +TOPROL XL25 M1 PO
--- NOTE | 2024-05-08 17:49 | NUR ---
PACIENTE TRAIDO EN AMBULANCIA POR QUEJA DE DEBILIDAD Y BRADICARDIA PARAMEDICOS REFIERE QUE EL MISMO SE ENCONTRABA CON HIPOTENSION 80/46 Y HR 39 LOS MISMO ADMINITRARON 1 MG DE ATROPINA Y NO HIZO EFECTO. AL MOMENTO DEL TRIAGE PACIENTE HIPOACTIVO CON RESPUESTA A ESTIMULOS DE DOLOR PROFUNDO Y CON BRADICARDIA 40 HR. SE REALIZA EKG Y SE PRESENT AA MD DE TURNO CUAL INDICA COLOCAR PACIENTE EN UNIAD DE CRITICO
[2024-05-08] MEDS ORDERED: NIFEDIPINE ER30 M1 PO (17:52)
[2024-05-08] MEDS ORDERED: METOPROLOL SUCC25 MG PO (17:52)
[2024-05-08] MEDS ORDERED: MONTELUKAST SOD10 MG PO (17:52)
[2024-05-08] MEDS ORDERED: PIPERACILLIN/TAZOBACTAM SODIUM 3.375 GM VIAL IV SCH (18:02)
[2024-05-08] MEDS ORDERED: FAMOtidine 10 MG/ML (4ML VIAL) IV ONE (18:15)
[2024-05-08] MEDS ORDERED: 0.9 % SODIUM CHLORIDE 1,000 ML IV SCH ×2 (18:15→22:15)
[2024-05-08 18:50] LABS: ERYTHROCYTE SEDIMENTATION RATE 21 mm/hr
--- NOTE | 2024-05-08 18:50 | NUR ---
SE CONECTA PACIENTE A MONITOR CARDIACO Y OXIMETRIA DE PULSO. SE CANALIZA EN MANO DERECH # 22 Y # 20 SE SANDRA EN S/L. SE MEGAN MUESTRAS DE LABORATORIOS Y SE ENVIAN. SE INSERTA LUNA # 16 SE OBSERVA 100 ML E EGRESO NO HEMATURIA SE KELTON U/A Y U/C. PENDIENTE A CT SCAN Y PLACA PORTABLE. SE NOTIFICAN ABGS A MS. STAPLETON
[2024-05-08 18:56] LABS: HEMATOCRIT 28.5 % (39.0-48.0); HEMOGLOBIN 9.3 g/dL (13-16.00); MEAN CORPUSCULAR HEMOGLOBIN 22.3 pg (27.00-32.0); MEAN CORPUSCULAR HGB CONC 32.6 g/dl (32.0-36.0); RED BLOOD COUNT 4.18 M/uL (4.00-6.00); RED CELL DISTRIBUTION WIDTH 22.9 % (11.5-14.5)
[2024-05-08] MEDS ORDERED: FAMOTIDINE/PF 20 MG/2 ML VIAL ONE (18:59)
[2024-05-08] MEDS ORDERED: PIPERACILLIN/TAZOBACTAM SODIUM 3.375 GM VIAL IV ONE ×2 (18:59→22:51)
[2024-05-08 19:05] LABS: MEAN CELL VOLUME 68.4 fL (80.0-100.00); PLATELET COUNT 62 K/uL (150-450)
[2024-05-08 19:08] LABS: PH,URINE 5.5 (5.0-8.0); URINE APPEARANCE Clear; URINE BACTERIA 13.4 uL (0.0-1933); URINE BILIRRUBIN Negative (NEGATIVE); URINE BLOOD Moderate; URINE CAST 1.91 uL (0.0-1.40); URINE COLOR Yellow; URINE EPITHELIAL CELLS 8.3 uL (0.0-38.8); URINE GLUCOSE Negative (NEGATIVE); URINE KETONE Negative (NEGATIVE); URINE LEUKOCYTE Negative; URINE NITRATE Negative; URINE RBC 112.6 uL (0.0-20.8); URINE WBC 11.8 uL (0.0-23.2)
[2024-05-08 19:12] LABS: INR 1.13; PROTHROMBIN TIME 12.2 SECONDS (9.0-11.5)
[2024-05-08 19:16] LABS: D DIMER 0.57 MG/L; PARTIAL THROMBOPLASTIN TIME 37.9 SECONDS (22.0-34.0)
[2024-05-08 19:22] LABS: URINE PROTEIN 100 (NEGATIVE)
[2024-05-08 19:34] LABS: ABG PH 7.376 (7.35-7.45)
[2024-05-08 19:34] LABS: ALBUMIN 1.9 gm/dL (3.4-5.0); BILIRUBIN TOTAL 0.43 mg/dL (0.3-1.2); C-REACTIVE PROTEIN 0.81 MG/DL (0.00-0.29); CALCIUM 8.5 mg/dL (8.5-10.1); CREATININE SERUM 1.08 mg/dL (0.70-1.30); GFR 65.95; POTASSIUM 4.11 mEq/L (3.5-5.1); TOTAL PROTEIN 4.9 gm/dL (6.4-8.2)
[2024-05-08 19:35] LABS: ABG PO2 147.5 mmHg (80-100); ABG pCO2 52.4 mmHg (35-45); BASE EXCESS 3.6 mmol/l; SaO2 99.2 %; Tco2 31.6 mmol/l; allen test SATISFACTORY; o2 21 %; puncture site BRADIAL RIGHT
[2024-05-08] MEDS ORDERED: DEXTROSE 50 % IN WATER 0.5 G/ML DISP.SYRIN IV ONE (19:37)
[2024-05-08] MEDS ORDERED: FUROsemide 20 MG/2 ML VIAL IV ONE (19:45)
[2024-05-08] MEDS ORDERED: DEXTROSE 50 % IN WATER 0.5 G/ML VIAL IV ONE (19:45)
[2024-05-08] MEDS ORDERED: FUROsemide 20 MG/2 ML VIAL ONE (19:52)
[2024-05-08] MEDS ORDERED: NIFEDIPINE 20 MG CAPSULE PO SCH (22:11)
[2024-05-08] MEDS ORDERED: METOPROLOL TARTRATE 25 MG TABLET PO SCH ×2 (22:11→22:22)
[2024-05-08] MEDS ORDERED: CARBIDOPA/LEVODOPA 25/250 TABLET PO SCH (22:12)
[2024-05-08] MEDS ORDERED: PANTOPRAZOLE SODIUM 40 MG in 0.9 % SODIUM CHLORIDE 8 ML IV PUSH SCH (22:13)
[2024-05-08] MEDS ORDERED: ACETAMINOPHEN 325 MG TABLET PO PRN (22:15)
[2024-05-08] MEDS ORDERED: hydrALAZINE HCL 20 MG VIAL IV PRN (22:45)
[2024-05-08] MEDS ORDERED: hydrALAZINE HCL 20 MG VIAL ONE (22:51)
[2024-05-08 22:57] VITALS: BP 147/73; O2SAT 100
[2024-05-09] MEDS ORDERED: LEVALBUTEROL HCL 0.63 MG/3 ML SOLUTION IH SCH
[2024-05-09 01:32] VITALS: BP 146/64; O2SAT 100
[2024-05-09] MEDS ORDERED: ACETAMINOPHEN 500 MG GEL..CAP PO PRN (07:00)
[2024-05-09 08:30] VITALS: BP 170/83
[2024-05-09] MEDS ORDERED: NIFEDIPINE 20 MG CAPSULE PO SCH (09:00)
[2024-05-09 09:53] VITALS: O2SAT 99
[2024-05-09 14:27] VITALS: O2SAT 100
[2024-05-09 17:49] VITALS: BP 185/91
[2024-05-09 21:57] VITALS: O2SAT 97
[2024-05-10] VITALS (8 sets, daily range): BP systolic 90–171; BP diastolic 71–82; O2SAT 97–99
[2024-05-10 09:27] LABS: HEMATOCRIT 32.5 % (39.0-48.0); MEAN CORPUSCULAR HGB CONC 32.7 g/dl (32.0-36.0); RED BLOOD COUNT 4.78 M/uL (4.00-6.00); RED CELL DISTRIBUTION WIDTH 23.6 % (11.5-14.5)
[2024-05-10 09:37] LABS: D DIMER 1.09 MG/L; INR 1.21
[2024-05-10 09:38] LABS: PARTIAL THROMBOPLASTIN TIME 39.9 SECONDS (22.0-34.0)
[2024-05-10 09:51] LABS: C-REACTIVE PROTEIN 0.74 MG/DL (0.00-0.29); FERRITIN 1306.4 NG/ML (26-388)
[2024-05-10 09:53] LABS: BILIRUBIN TOTAL 0.67 mg/dL (0.3-1.2); CALCIUM 8.6 mg/dL (8.5-10.1); CREATININE SERUM 1.58 mg/dL (0.70-1.30); GFR 42.52; GLOBULINA 3.1 G/DL (2.4-3.5); MAGNESIUM 1.7 mg/dL (1.8-2.4); PHOSPHOROUS 4.1 mg/dL (2.5-4.9); POTASSIUM 4.03 mEq/L (3.5-5.1); TOTAL PROTEIN 5.1 gm/dL (6.4-8.2)
[2024-05-10 09:54] LABS: ERYTHROCYTE SEDIMENTATION RATE 24 mm/hr
[2024-05-10 10:01] LABS: C-REACTIVE PROTEIN 0.76 MG/DL (0.00-0.29); MEAN CELL VOLUME 68.1 fL (80.0-100.00)
[2024-05-10 10:04] LABS: HEMOGLOBIN 10.6 g/dL (13-16.00); MEAN CORPUSCULAR HEMOGLOBIN 22.1 pg (27.00-32.0)
[2024-05-10] MEDS ORDERED: DEXTROSE 5 %-0.45 % SOD CHLORD 1,000 ML IV SCH (14:45)
[2024-05-10 15:04] LABS: PLATELET COUNT 46 K/uL (150-450)
[2024-05-10] MEDS ORDERED: LACTOBACILLUS ACIDOPHILUS 1 CAP CAP PO SCH (17:00)
[2024-05-10] MEDS ORDERED: CLINDAMYCIN PHOSPHATE 150 MG/ML (600mg) IV SCH (17:00)
[2024-05-10 19:27] LABS: INR 1.28; PROTHROMBIN TIME 13.7 SECONDS (9.0-11.5)
[2024-05-10 19:45] LABS: COL EPI 293 SECONDS (82-175); PARTIAL THROMBOPLASTIN TIME 40.2 SECONDS (22.0-34.0)
[2024-05-10 19:49] LABS: COL ADP >300 SECONDS (56-102)
[2024-05-10] MEDS ORDERED: CEFEPIME HCL 2,000 MG VIAL IV SCH (21:00)
[2024-05-11] VITALS (7 sets, daily range): BP systolic 112–153; BP diastolic 47–89; O2SAT 96–100
[2024-05-11 07:01] LABS: HEMATOCRIT 25.3 % (39.0-48.0); MEAN CORPUSCULAR HGB CONC 32.1 g/dl (32.0-36.0); RED BLOOD COUNT 3.67 M/uL (4.00-6.00); RED CELL DISTRIBUTION WIDTH 23.8 % (11.5-14.5)
[2024-05-11 08:07] LABS: PLATELET COUNT 46 K/uL (150-450)
[2024-05-11 08:08] LABS: HEMOGLOBIN 8.1 g/dL (13-16.00)
[2024-05-11 10:13] LABS: MANUAL PLATELET COUNT 58
[2024-05-11 10:15] LABS: PLATELET ESTIMATE DECREASED (NORMAL)
[2024-05-11] MEDS ORDERED: FLUCONAZOLE IN NACL,ISO-OSM 400 MG/200 ML PIGGYBAG IV NR (17:00)
[2024-05-11] MEDS ORDERED: DOPamine HCL IN DEXTROSE 5 % 250 ML IV SCH (17:45)
[2024-05-11] MEDS ORDERED: DOPamine HCL 400MG/D5w 250ML PLAST..BAG IV ONE (17:53)
[2024-05-12] VITALS (14 sets, daily range): BP systolic 87–141; BP diastolic 51–80; O2SAT 95–100
[2024-05-12 06:15] LABS: HEMATOCRIT 36.2 % (39.0-48.0); HEMOGLOBIN 11.5 g/dL (13-16.00); MEAN CORPUSCULAR HEMOGLOBIN 22.1 pg (27.00-32.0); MEAN CORPUSCULAR HGB CONC 31.8 g/dl (32.0-36.0); RED BLOOD COUNT 5.21 M/uL (4.00-6.00)
[2024-05-12 06:22] LABS: PH,URINE 5.5 (5.0-8.0); URINE APPEARANCE Turbid; URINE BILIRRUBIN Negative (NEGATIVE); URINE BLOOD Large; URINE COLOR Dark Yellow; URINE KETONE Trace (NEGATIVE); URINE LEUKOCYTE Trace; URINE NITRATE Negative; URINE UROBILINOGEN 0.2 E.U./dl
[2024-05-12 06:22] LABS: MEAN CELL VOLUME 69.6 fL (80.0-100.00); PLATELET COUNT 53 K/uL (150-450)
[2024-05-12 06:26] LABS: URINE BACTERIA 1406.3 uL (0.0-1933); URINE EPITHELIAL CELLS 55.8 uL (0.0-38.8); URINE RBC 516.7 uL (0.0-20.8); URINE WBC 76.6 uL (0.0-23.2)
[2024-05-12 06:40] LABS: URINE CAST 1.03 uL (0.0-1.40); URINE GLUCOSE 250 MG/DL (NEGATIVE); URINE PROTEIN 300 (NEGATIVE)
[2024-05-12 06:41] LABS: URINE CRYSTALS MODERATE /HPF
[2024-05-12 07:03] LABS: BILIRUBIN TOTAL 1.17 mg/dL (0.3-1.2); CALCIUM 7.6 mg/dL (8.5-10.1); CREATININE SERUM 1.92 mg/dL (0.70-1.30); GFR 33.95; GLOBULINA 3.4 G/DL (2.4-3.5); MAGNESIUM 1.6 mg/dL (1.8-2.4); PHOSPHOROUS 4.5 mg/dL (2.5-4.9); TOTAL PROTEIN 5.4 gm/dL (6.4-8.2); TSH 2.77 uIU/mL (0.358-3.74)
[2024-05-12 07:27] LABS: C-REACTIVE PROTEIN 1.24 MG/DL (0.00-0.29); CKMB 10.7 NG/ML (0.5-3.6)
[2024-05-12 07:28] LABS: POTASSIUM 2.93 mEq/L (3.5-5.1)
[2024-05-12] MEDS ORDERED: POTASSIUM CHLORIDE IN WATER 100 ML IV NR (09:30)
[2024-05-12 11:03] LABS: PROCALCITONIN 0.077 ng/ml (0.020-0.080)
[2024-05-12 11:04] LABS: CORTISOL 16.18 ug/dl
[2024-05-12] MEDS ORDERED: FLUCONAZOLE IN NACL,ISO-OSM 100 ML IV SCH (12:00)
[2024-05-12] MEDS ORDERED: LevETIRAcetam 500 MG/5 ML VIAL IV SCH (21:45)
[2024-05-13] VITALS (23 sets, daily range): BP systolic 85–144; BP diastolic 39–77; O2SAT 95–100
[2024-05-13 02:50] LABS: HEMATOCRIT 30.9 % (39.0-48.0); HEMOGLOBIN 9.9 g/dL (13-16.00); MEAN CORPUSCULAR HEMOGLOBIN 22.1 pg (27.00-32.0); MEAN CORPUSCULAR HGB CONC 32.1 g/dl (32.0-36.0); RED BLOOD COUNT 4.48 M/uL (4.00-6.00); RED CELL DISTRIBUTION WIDTH 24.5 % (11.5-14.5)
[2024-05-13 02:51] LABS: PLATELET COUNT 110 K/uL (150-450)
[2024-05-13] MEDS ORDERED: MEROPENEM 500 MG/VIAL VIAL IV SCH (05:00)
[2024-05-13 08:44] LABS: ALBUMIN 1.9 gm/dL (3.4-5.0); BILIRUBIN TOTAL 0.79 mg/dL (0.3-1.2); CALCIUM 7.6 mg/dL (8.5-10.1); CREATININE SERUM 2.24 mg/dL (0.70-1.30); GFR 28.42; POTASSIUM 3.49 mEq/L (3.5-5.1); TOTAL PROTEIN 4.9 gm/dL (6.4-8.2)
[2024-05-13] MEDS ORDERED: CEFEPIME HCL 2,000 MG VIAL IV SCH (09:00)
[2024-05-13] MEDS ORDERED: MAGNESIUM SULFATE IN WATER 2 GM/50 ML PIGGYBAG IV NR (13:30)
[2024-05-13] MEDS ORDERED: POTASSIUM CHLORIDE IN WATER 100 ML IV NR (15:00)
[2024-05-13] MEDS ORDERED: AMINO ACIDS 4.25 %/DEXTROSE 5% 1,000 ML PERIFERAL SCH (17:00)
[2024-05-13] MEDS ORDERED: MIDODRINE HCL 5 MG TABLET PO SCH (18:33)
[2024-05-13] MEDS ORDERED: 0.9 % SODIUM CHLORIDE 1,000 ML IV ONE (18:45)
[2024-05-14] VITALS (17 sets, daily range): BP systolic 90–132; BP diastolic 42–72; O2SAT 0–100
[2024-05-14 08:23] LABS: ALBUMIN 1.4 gm/dL (3.4-5.0); CALCIUM 6.9 mg/dL (8.5-10.1); CREATININE SERUM 2.81 mg/dL (0.70-1.30); GFR 21.88; MAGNESIUM 1.7 mg/dL (1.8-2.4); PHOSPHOROUS 4.1 mg/dL (2.5-4.9); POTASSIUM 4.77 mEq/L (3.5-5.1)
[2024-05-14 08:53] LABS: MEAN CORPUSCULAR HGB CONC 32.8 g/dl (32.0-36.0); RED BLOOD COUNT 3.39 M/uL (4.00-6.00); RED CELL DISTRIBUTION WIDTH 24.2 % (11.5-14.5)
[2024-05-14 10:02] LABS: MEAN CELL VOLUME 67.8 fL (80.0-100.00); MEAN CORPUSCULAR HEMOGLOBIN 22.1 pg (27.00-32.0)
[2024-05-14 10:03] LABS: PLATELET COUNT 48 K/uL (150-450)
[2024-05-14 10:06] LABS: HEMOGLOBIN 7.5 g/dL (13-16.00)
[2024-05-14] MEDS ORDERED: CHLORHEXIDINE GLUCONATE 120 ML BOTTLE TOP ONE (11:02)
[2024-05-14] MEDS ORDERED: DEXTROSE 50 % IN WATER 0.5 G/ML DISP.SYRIN IV PRN (13:15)
[2024-05-14 15:03] LABS: MEAN CORPUSCULAR HGB CONC 33.3 g/dl (32.0-36.0); RED BLOOD COUNT 3.52 M/uL (4.00-6.00); RED CELL DISTRIBUTION WIDTH 24.2 % (11.5-14.5)
[2024-05-14 15:05] LABS: HEMATOCRIT 23.5 % (39.0-48.0); MEAN CELL VOLUME 66.8 fL (80.0-100.00); MEAN CORPUSCULAR HEMOGLOBIN 22.1 pg (27.00-32.0)
[2024-05-14 15:07] LABS: HEMOGLOBIN 7.8 g/dL (13-16.00)
[2024-05-14 15:08] LABS: PLATELET COUNT 39 K/uL (150-450)
[2024-05-14] MEDS ORDERED: AMINO ACIDS 4.25%/DEXTROSE 10% 1,000 ML CENTRAL SCH (17:00)
[2024-05-15] VITALS (11 sets, daily range): BP systolic 93–190; BP diastolic 54–90; O2SAT 95–100
[2024-05-15] MEDS ORDERED: FUROsemide 20 MG/2 ML VIAL IV SCH (07:30)
[2024-05-15] MEDS ORDERED: VANCOMYCIN HCL 1,000 MG VIAL IV SCH (14:00)
[2024-05-16] VITALS (13 sets, daily range): BP systolic 115–177; BP diastolic 64–87; O2SAT 90–98
[2024-05-16 08:13] LABS: INR 1.31
[2024-05-16 08:14] LABS: HEMATOCRIT 35.6 % (39.0-48.0); HEMOGLOBIN 11.8 g/dL (13-16.00); MEAN CELL VOLUME 72.9 fL (80.0-100.00); MEAN CORPUSCULAR HEMOGLOBIN 24.2 pg (27.00-32.0); MEAN CORPUSCULAR HGB CONC 33.1 g/dl (32.0-36.0); RED BLOOD COUNT 4.88 M/uL (4.00-6.00)
[2024-05-16 08:24] LABS: ALBUMIN 1.5 gm/dL (3.4-5.0); BILIRUBIN TOTAL 0.82 mg/dL (0.3-1.2); BILIRUBIN,CONJUGATED 0.34 mg/dL (0.0-0.2); BILIRUBIN,UNCONJUGATED 0.48 mg/dL (0.0-0.6); CALCIUM 7.8 mg/dL (8.5-10.1); CHOL HDL RATIO 1.8 (0-5.0); CREATININE SERUM 2.91 mg/dL (0.70-1.30); GFR 21.01; GLOBULINA 3.1 G/DL (2.4-3.5); MAGNESIUM 1.6 mg/dL (1.8-2.4); POTASSIUM 4.28 mEq/L (3.5-5.1); TOTAL PROTEIN 4.6 gm/dL (6.4-8.2)
[2024-05-16 08:48] LABS: PARTIAL THROMBOPLASTIN TIME 52.2 SECONDS (22.0-34.0)
[2024-05-16 08:52] LABS: RED CELL DISTRIBUTION WIDTH 26.1 % (11.5-14.5)
[2024-05-16 08:56] LABS: PLATELET COUNT 19 K/uL (150-450)
[2024-05-16 10:06] LABS: UREA CLEARANCE 1.1 ML/MIN
[2024-05-16] MEDS ORDERED: PANTOPRAZOLE SODIUM 80 MG in 0.9 % SODIUM CHLORIDE 100 ML IV SCH (10:15)
[2024-05-16 23:42] LABS: HEMATOCRIT 28.8 % (39.0-48.0); MEAN CELL VOLUME 71.3 fL (80.0-100.00); MEAN CORPUSCULAR HGB CONC 34.2 g/dl (32.0-36.0); RED BLOOD COUNT 4.04 M/uL (4.00-6.00)
[2024-05-16 23:43] LABS: HEMOGLOBIN 9.8 g/dL (13-16.00); MEAN CORPUSCULAR HEMOGLOBIN 24.2 pg (27.00-32.0); PLATELET COUNT 36 K/uL (150-450); RED CELL DISTRIBUTION WIDTH 25.9 % (11.5-14.5)
[2024-05-17] VITALS (8 sets, daily range): BP systolic 100–115; BP diastolic 49–50; O2SAT 0–97
== END 2024-05-17 15:07 | disposition expired | DRG 177 ==
LOC: ER 17:12 → MEDJ 22:13 → ICU 05-12 19:27 → MEDI 05-14 19:06
PROVIDERS: General Practice; Internal Medicine; Internal Medicine Hematology & Oncology; Internal Medicine Infectious Disease; Internal Medicine Nephrology; Student in an Organized Health Care Education/Training Program; ADMIT Internal Medicine; ATTEND Internal Medicine
PROC: 4A12X4Z Monitoring of Cardiac Electrical Activity, External Approach (ICD-10-PCS; 2024-05-08)
PROC: BB24ZZZ Computerized Tomography (CT Scan) of Bilateral Lungs (ICD-10-PCS; 2024-05-08)
PROC: B020ZZZ Computerized Tomography (CT Scan) of Brain (ICD-10-PCS; 2024-05-08)
PROC: 3E0G76Z Introduction of Nutritional Substance into Upper GI, Via Natural or Artificial Opening (ICD-10-PCS; 2024-05-09)
PROC: 02HV33Z Insertion of Infusion Device into Superior Vena Cava, Percutaneous Approach (ICD-10-PCS; 2024-05-09)
PROC: 3E0F7GC Introduction of Other Therapeutic Substance into Respiratory Tract, Via Natural or Artificial Opening (ICD-10-PCS; 2024-05-09)
PROC: 0DH67UZ Insertion of Feeding Device into Stomach, Via Natural or Artificial Opening (ICD-10-PCS; 2024-05-09)
PROC: BW40ZZZ Ultrasonography of Abdomen (ICD-10-PCS; 2024-05-10)
PROC: 30233R1 Transfusion of Nonautologous Platelets into Peripheral Vein, Percutaneous Approach (ICD-10-PCS; 2024-05-11)
PROC: 5A0945A Assistance with Respiratory Ventilation, 24-96 Consecutive Hours, High Flow/Velocity Cannula (ICD-10-PCS; principal; 2024-05-13)
PROC: 30233N1 Transfusion of Nonautologous Red Blood Cells into Peripheral Vein, Percutaneous Approach (ICD-10-PCS; 2024-05-14)
DX: J69.0 Pneumonitis due to inhalation of food and vomit (principal); G93.41 Metabolic encephalopathy; J96.02 Acute respiratory failure with hypercapnia; D61.818 Other pancytopenia; R18.8 Other ascites; J90 Pleural effusion, not elsewhere classified; N17.9 Acute kidney failure, unspecified; E87.0 Hyperosmolality and hypernatremia; D62 Acute posthemorrhagic anemia; D69.6 Thrombocytopenia, unspecified; I46.9 Cardiac arrest, cause unspecified; E86.9 Volume depletion, unspecified; R56.9 Unspecified convulsions; D64.89 Other specified anemias; D50.9 Iron deficiency anemia, unspecified; R13.19 Other dysphagia; I13.10 Hypertensive heart and chronic kidney disease without heart failure, with stage 1 through stage 4 chronic kidney disease, or unspecified chronic kidney disease; I25.10 Atherosclerotic heart disease of native coronary artery without angina pectoris; N18.9 Chronic kidney disease, unspecified; G20.A1 Parkinson's disease without dyskinesia, without mention of fluctuations; F02.80 Dementia in other diseases classified elsewhere, unspecified severity, without behavioral disturbance, psychotic disturbance, mood disturbance, and anxiety; R54 Age-related physical debility; Z74.01 Bed confinement status; Z66 Do not resuscitate